=== PATIENT | female | born 1935 | race Caucasian/White ===

== ENCOUNTER → 2016-05-22 | Outpatient (CLI) | payer OTHER ==
--- NOTE | 2016-05-22 10:37 | DIAGNOSTIC IMAGING REPORT ---
CHEST 2 VIEWS ROUTINE CLINICAL HISTORY: Cough, wheezing, PT WENT TO RESP FIRST COMPARISON STUDY: No previous studies for comparison. FINDINGS: Small parenchymal infiltrate right cardiophrenic angle. Lungs otherwise appear clear. Heart is top limits normal terms of size. IMPRESSION: Small parenchymal infiltrate medial right cardiophrenic angle Electronically signed by: Dewey Schroeder M.D. 05/22/2016 10:36 AM Dictated Date/Time: 05/22/2016 10:35 AM
--- NOTE | 2016-05-23 08:37 | PULMONARY FUNCTION TEST ---
INTERPRETATION: The spirometry reveals mild obstruction with no change in the airflow with the use of albuterol.
== END | disposition home or self-care (01) ==
LOC: C.RC 09:56
PROVIDERS: ATTEND Internal Medicine
DX: R05 Cough (principal); R06.2 Wheezing

== ENCOUNTER → 2016-06-18 | Outpatient (CLI) | payer OTHER ==
--- NOTE | 2016-06-18 12:47 | DIAGNOSTIC IMAGING REPORT ---
CHEST 2 VIEWS ROUTINE CLINICAL HISTORY: PN pneumonia COMPARISON STUDY: 05/22/2016 FINDINGS: Mild chronic basilar fibrotic change. Lungs appear clear. There are no acute infiltrative changes. The infiltrative process medial right cardiophrenic angle on the prior study resolved IMPRESSION: No acute process. Lungs are now considered clear. Electronically signed by: Dewey Schroeder M.D. 06/18/2016 12:46 PM Dictated Date/Time: 06/18/2016 12:44 PM
== END | disposition home or self-care (01) ==
LOC: C.RAD 11:57
PROVIDERS: ATTEND Internal Medicine
DX: J18.9 Pneumonia, unspecified organism (principal)

== ENCOUNTER → 2017-03-27 | Outpatient (CLI) | payer OTHER ==
[2017-03-27 17:42] LABS: BASO % 0.6 %; BASO ABS # 0.05 K/uL (0-0.2); COMPLETE YES; EOS % 7.5 %; HEMATOCRIT 39.4 % (37-47); IG% 0.2 %; LYMPH ABS # 2.94 K/uL (1.2-3.4); MEAN CELL VOLUME 92.1 fL (80-100); MEAN CORPUSCULAR HEMOGLOBIN 30.8 pg (25-34); MEAN CORPUSCULAR HGB CONC 33.5 g/dl (32-36); MEAN PLATELET VOLUME 10.2 fL (7.4-10.4); MONO % 6.9 %; NEUT % 49.8 %; PLATELET COUNT 277 K/uL (130-400); RED BLOOD COUNT 4.28 M/uL (4.2-5.4); WHITE BLOOD COUNT 8.39 K/uL (4.8-10.8)
== END | disposition home or self-care (01) ==
LOC: C.LAB1850 16:45
PROVIDERS: ATTEND Internal Medicine Infectious Disease
DX: A69.20 Lyme disease, unspecified (principal)